=== PATIENT | male | born 1965 ===

== ENCOUNTER 2016-11-30 02:37 | Emergency (ER) | payer MEDICAID, OTHER ==
[2016-11-30 02:38] VITALS: BMI 25.7
[2016-11-30 03:27] VITALS: BP 125/81; PULSE 96; RESP 18; TEMP 98.2; O2SAT 98
[2016-11-30] MEDS ORDERED: Bacitracin 500 Units/gm Oint Foilpak UD ONE (04:31)
[2016-11-30] MEDS ORDERED: Oxycodone/Acetaminophen 5/325 mg Tab PO STA (04:39)
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
[2016-11-30] MEDS ORDERED: Oxycodone/Acetaminophen 5/325 mg Tab ONE (04:58)
== END 2016-11-30 05:38 | disposition home or self-care (01) ==
LOC: SUPCPDRO 02:37 → C.ER 02:37
DX: G89.21 Chronic pain due to trauma (principal); T20.05 Burn of unspecified degree of scalp [any part]; X08.8XXD Exposure to other specified smoke, fire and flames, subsequent encounter